=== PATIENT | male | born 2000 | race African-American/Black ===

== ENCOUNTER 2018-08-01 08:48 | Emergency (ER) | payer OTHER, SELFPAY ==
[2018-08-01 09:03] VITALS: BP 118/73; PULSE 72; RESP 16; TEMP 36.7; O2SAT 99; BMI 22.4
--- NOTE | 2018-08-01 09:48 | ED.URI ---
HPI - URI/Sore Throat General Chief Complaint: Upper Respiratory Symptoms Stated Complaint: blood in mucous, sinuses clogged up,cough Time Seen by Provider: 08/01/18 09:48 Source: patient Mode of arrival: ambulatory Limitations: no limitations History of Present Illness HPI Narrative: 17-year-old male comes to the emergency department with complaint of a little bit of nasal congestion, cough. He states he produced a little bit of yellowish sputum and there is a small tinge of blood. He states he has not had any fevers. He states that it feels like he has a cold and upper respiratory infection. He denies any chest pain or pressure, patient denies any nausea no vomiting or other symptoms. Is not any rashes or other skin changes. He has not had any fevers. He states he has had similar symptoms and sinus issues in the past. The patient states that he went to a Medical today at the [employer] but they were closed and when he went to return to work they told him he needed to come to the hospital for evaluation. Patient states he has used Flonase in the past he states he does not need any today. Review of Systems Review of Systems ROS Unobtainable: All systems reviewed & are unremarkable except as noted in HPI and below Constitutional Denies chills, Denies fever(s), Denies headache(s), Denies lethargy and Denies weakness ENT Ears, Nose, Mouth, and Throat: Denies facial pain, Denies headache(s), Denies hoarseness, Denies epistaxis, Reports nasal congestion, Denies neck mass, Denies neck pain, Reports post nasal drip, Denies sinus pain, Reports sinus pressure and Denies sore throat Cardiovascular Denies chest pain, Denies dyspnea and Denies dyspnea on exertion Respiratory Denies change in phlegm color, Denies chest congestion, Reports cough, Reports hemoptysis (tinge of blood in sputum.), Denies excessive phlegm production, Denies pain on inspiration, Denies pain with cough, Denies dyspnea, Denies dyspnea on exertion and Denies wheezing Gastrointestinal Gastrointestinal: Denies nausea and Denies vomiting Musculoskeletal Denies neck pain Integumentary/Breasts Denies rash Neurologic Denies headache(s) and Denies weakness Allergic/Immunologic Denies wheezing [facility] Social History Smoking Status: Current every day smoker Social History Smoking Status: Current every day smoker Exam Narrative Exam Narrative: GEN: well nourished, well appearing male, alert and oriented x 3, patient appears to be in mild distress. HEENT: Atraumatic, pupils are equal round reactive to light, extraocular movements are intact, nares are clear, turbinates are slightly erythematous and boggy, TMs are clear with no fluid, there is no conjunctival pallor. Throat is clear without any exudates, erythema, tonsillar enlargement or uvular deviation, mild lymphadenopathy bilaterally HEART: Regular rate and rhythm without murmur, clicks, rubs. No carotid bruits, pulses are equal in upper and lower extremities LUNGS:Lungs clear to auscultation, no wheezes, rales, crackles, chest moves symmetrically ABD:bowel sounds normal, soft, non-tender, no guarding, rebound, rigidity, no masses noted, no hepatosplenomegaly MSCL: full range of motion, normal gait NEURO:CN 2-12 intact, sensation normal Initial Vital Signs Initial Vital Signs: Vital Signs Temperature 98.1 F 08/01/18 09:03 Pulse Rate 72 08/01/18 09:03 Respiratory Rate 16 08/01/18 09:03 Blood Pressure 118/73 08/01/18 09:03 Pulse Oximetry 99 08/01/18 09:03 Course Vital Signs - 8 hr 08/01/18 09:03 Temperature 98.1 F Pulse Rate 72 Respiratory Rate 16 Blood Pressure 118/73 Pulse Oximetry 99 Discharge Plan Departure Patient Disposition: Home Clinical Impression: Upper respiratory infection Qualifiers: URI type: unspecified URI Qualified Code(s): J06.9 - Acute upper respiratory infection, unspecified Discharge Date/Time: 08/01/18 10:19 Interventions: ED Discharge Assessment Last Done: 08/01/18 10:19 Instructions: DI for Viral Upper Respiratory Infection -- Adult Activity Restrictions/Additional Instructions: Follow-up with primary care if her symptoms do not improve. Make sure that your staying hydrated. Make you may try [id number] Claritin or Zyrtec if you are having a lot of nasal congestion. This medication should not make you particularly drowsy. Return to the ER for rapidly worsening symptoms, difficulty with breathing, passing out, persistent vomiting, new chest or abdominal pain, swelling of your face or other new or concerning symptoms.
--- NOTE | 2018-08-01 10:09 | ED_ITS ---
HPI - URI/Sore Throat General Chief Complaint: Upper Respiratory Symptoms Stated Complaint: blood in mucous, sinuses clogged up,cough Time Seen by Provider: 08/01/18 09:48 Source: patient Mode of arrival: ambulatory Limitations: no limitations History of Present Illness HPI Narrative: 17-year-old male comes to the emergency department with complaint of a little bit of nasal congestion, cough. He states he produced a little bit of yellowish sputum and there is a small tinge of blood. He states he has not had any fevers. He states that it feels like he has a cold and upper respiratory infection. He denies any chest pain or pressure, patient denies any nausea no vomiting or other symptoms. Is not any rashes or other skin changes. He has not had any fevers. He states he has had similar symptoms and sinus issues in the past. The patient states that he went to a Medical today at the [employer] but they were closed and when he went to return to work they told him he needed to come to the hospital for evaluation. Patient states he has used Flonase in the past he states he does not need any today. Review of Systems Review of Systems ROS Unobtainable: All systems reviewed & are unremarkable except as noted in HPI and below Constitutional Denies chills, Denies fever(s), Denies headache(s), Denies lethargy and Denies weakness ENT Ears, Nose, Mouth, and Throat: Denies facial pain, Denies headache(s), Denies hoarseness, Denies epistaxis, Reports nasal congestion, Denies neck mass, Denies neck pain, Reports post nasal drip, Denies sinus pain, Reports sinus pressure and Denies sore throat Cardiovascular Denies chest pain, Denies dyspnea and Denies dyspnea on exertion Respiratory Denies change in phlegm color, Denies chest congestion, Reports cough, Reports hemoptysis (tinge of blood in sputum.), Denies excessive phlegm production, Denies pain on inspiration, Denies pain with cough, Denies dyspnea, Denies dys pnea on exertion and Denies wheezing Gastrointestinal Gastrointestinal: Denies nausea and Denies vomiting Musculoskeletal Denies neck pain Integumentary/Breasts Denies rash Neurologic Denies headache(s) and Denies weakness Allergic/Immunologic Denies wheezing [facility] Social History Smoking Status: Current every day smoker Social History Smoking Status: Current every day smoker Exam Narrative Exam Narrative: GEN: well nourished, well appearing male, alert and oriented x 3, patient appears to be in mild distress. HEENT: Atraumatic, pupils are equal round reactive to light, extraocular movements are intact, nares are clear, turbinates are slightly erythematous and boggy, TMs are clear with no fluid, there is no conjunctival pallor. Throat is clear without any exudates, erythema, tonsillar enlargement or uvular deviation, mild lymphadenopathy bilaterally HEART: Regular rate and rhythm without murmur, clicks, rubs. No carotid bruits, pulses are equal in upper and lower extremities LUNGS:Lungs clear to auscultation, no wheezes, rales, crackles, chest moves symmetrically ABD:bowel sounds normal, soft, non-tender, no guarding, rebound, rigidity, no m asses noted, no hepatosplenomegaly MSCL: full range of motion, normal gait NEURO:CN 2-12 intact, sensation normal Initial Vital Signs Initial Vital Signs: Vital Signs Temperature 98.1 F 08/01/18 09:03 Pulse Rate 72 08/01/18 09:03 Respiratory Rate 16 08/01/18 09:03 Blood Pressure 118/73 08/01/18 09:03 Pulse Oximetry 99 08/01/18 09:03 Course Vital Signs - 8 hr 08/01/18 09:03 Temperature 98.1 F Pulse Rate 72 Respiratory Rate 16 Blood Pressure 118/73 Pulse Oximetry 99 Discharge Plan Departure Patient Disposition: Home Clinical Impression: Upper respiratory infection Qualifiers: URI type: unspecified URI Qualified Code(s): J06.9 - Acute upper respiratory infection, unspecified Discharge Date/Time: 08/01/18 10:19 Interventions: ED Discharge Assessment Last Done: 08/01/18 10:19 Instructions: DI for Viral Upper Respiratory Infection -- Adult Activity Restrictions/Additional Instructions: Follow-up with primary care if her symptoms do not improve. Make sure that your staying hydrated. Make you may try [id number] Claritin or Zyrtec if you are having a lot of nasal congestion. This medication should not make you particularly drowsy. Return to the ER for rapidly worsening symptoms, difficulty with breathing, passing out, persistent vomiting, new chest or abdominal pain, swelling of your face or other new or concerning symptoms.
[2018-08-01 10:19] VITALS: BP 120/79; PULSE 61; RESP 18; O2SAT 99
== END 2018-08-01 10:19 | disposition home or self-care (01) ==
PROVIDERS: Emergency Provider Emergency Medicine
DX: J06.9 Acute upper respiratory infection, unspecified (principal); R04.2 Hemoptysis
CPT/HCPCS: 99282